=== PATIENT | male | born 1990 | race African-American/Black ===

== ENCOUNTER 2021-09-10 10:31 | Emergency (ER) | payer SELFPAY ==
[~2021-09-10] VITALS: Ht 190.5 cm; Wt 145.0 kg
[2021-09-10] MEDS ORDERED: HYDROCODONE/ACETAMINOPHEN 5/325MG TABLET PO ONE (10:45)
[2021-09-10 11:37] VITALS: BP 135/78
[2021-09-10] MEDS ORDERED: IBUP-2030 MT (11:44)
== END 2021-09-10 12:03 | disposition home or self-care (01) ==
LOC: ER 10:31
DX: S40.022A Contusion of left upper arm, initial encounter (principal); W01.0XXA Fall on same level from slipping, tripping and stumbling without subsequent striking against object, initial encounter; Y93.89 Activity, other specified; Y92.89 Other specified places as the place of occurrence of the external cause; Y99.8 Other external cause status
CPT/HCPCS: 73080; 73090; 73110; 99284; A4565